=== PATIENT | male | born 1990 | race Caucasian/White ===

== ENCOUNTER 2017-05-01 10:49 | Emergency (ER) | payer SELFPAY ==
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
[2017-05-01] MEDS ORDERED: Ketorolac INJ* 60 MG/2 ML VIAL IM ONE (12:52)
[2017-05-01 12:55] VITALS: BP 122/62
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
== END 2017-05-01 13:20 | disposition home or self-care (01) ==
LOC: UCEAST 10:49
DX: S16.1XXA Strain of muscle, fascia and tendon at neck level, initial encounter (principal); V43.52XA Car driver injured in collision with other type car in traffic accident, initial encounter; Y93.89 Activity, other specified; Y92.410 Unspecified street and highway as the place of occurrence of the external cause; F17.210 Nicotine dependence, cigarettes, uncomplicated
CPT/HCPCS: 72050; 72070; 96372; 99202; G0463; J1885

== ENCOUNTER 2018-12-05 21:16 | Emergency (ER) | payer SELFPAY ==
[2018-12-05] MEDS ORDERED: Tetracaine 0.5% OPTH.SOL 4 ML* 1 DROP BTL LEFT EYE ONE (21:26)
[2018-12-05] MEDS ORDERED: Fluorescein Sodium TOPICAL* 1 MG TEST STRIP OPHTHALMIC ONE (21:26)
--- NOTE | 2018-12-05 21:30 | UC ---
Eye Complaint HPI - HPI Summary HPI Summary: 28-year-old male complains of 3-4 days of foreign body sensation, pain, redness and tearing in his left eye. He has no definite history for foreign body in that eye and does not wear contacts or glasses. He states he has had corneal ulceration in the past but was unsure why. He denies any pain with bright light or other injury. He is a smoker but denies contributory medical history. - History of Current Complaint Stated Complaint: EYE COMPLAINT Time Seen by Provider: 12/05/18 21:20 Hx Obtained From: Patient - Allergies/Home Medications Allergies/Adverse Reactions: Allergies Allergy/AdvReac Type Severity Reaction Status Date / Time No Known Allergies Allergy Verified 12/05/18 21:36 PMH/Surg Hx/FS Hx/Imm Hx - Additional Past Medical History Additional PMH: Corneal ulceration in the past Previously Healthy: Yes - no autoimmune disease - Surgical History Surgical History: None - Family History Known Family History: Negative: Blood Disorder - Social History Alcohol Use: Occasionally Substance Use Type: None Smoking Status (MU): Light Every Day Tobacco Smoker Amount Used/How Often: 1/2PPD Review of Systems All Other Systems Reviewed And Are Negative: Yes Constitutional: Negative: Fever Skin: Positive: Negative Eyes: Positive: Drainage, Eye Redness, Other - FB sensation. Negative: Blurred Vision, Diplopia ENT: Positive: Negative Neurological: Positive: Negative Physical Exam Triage Information Reviewed: Yes Appearance: Well-Appearing, No Pain Distress, Well-Nourished Eyes: Positive: Conjunctiva Inflamed, Other: - no FB with lid eversion. Appears to be tiny opacification at 2pm on lateral cornea. Tearing without discharge. No pain with light reflex. No apparent depth to the lesion which does uptake fluorescein. Pain relieved with topical tetracaine ENT: Positive: Normal ENT inspection Neck: Positive: Supple Respiratory: Positive: Lungs clear Cardiovascular: Positive: RRR Musculoskeletal Exam: Normal Neurological Exam: Normal Psychological Exam: Normal Skin Exam: Normal Eye Complaint Course/Dx - Course Course Of Treatment: Abrasion versus ulceration with no apparent depth to it up appearing at 2 PM on the cornea. This is about 1 mm in size. There is fluorescein uptake in pain relieved with tetracaine. There is some opacification to it. He does have a history of ulceration in the past from a piece of concrete and was told that he would have scarring. There is no foreign body present with lid eversion. There is no evidence for iritis and he has no autoimmune history. Treated for pain and referred to ophthalmology. Started on topical drops here. 20/15 dion eye vision. - Differential Dx/Diagnosis Differential Diagnosis/HQI/PQRI: Corneal Abrasion, Keratitis, Uveitis Provider Diagnosis: Corneal abrasion, left Discharge - Sign-Out/Discharge Documenting (check all that apply): Patient Departure All imaging exams completed and their final reports reviewed: No Studies - Discharge Plan Condition: Improved Disposition: HOME Prescriptions: HYDROcodone/ACETAMIN 5-325 MG* [[place] 5-325 TAB*] 1 tab PO Q8H PRN #5 tab MDD 3 PRN Reason: severe eye pain Patient Education Materials: Corneal Abrasion (ED) Referrals: No Primary Care PhysNOPCP [Primary Care Provider] - Rolan Alexandra MD [Medical Doctor] - Additional Instructions: Call first thing Thursday to schedule prompt follow-up with eye doctor. Return to urgent care tomorrow if you're having increased pain, trouble with vision, worse or other concerns. For tonight do one drop in the left eye every hour until bedtime. Then he will use it one drop 5 or 6 times per day until seen by the eye doctor. Ibuprofen for baseline pain. - Billing Disposition and Condition Condition: IMPROVED Disposition: Home
[2018-12-05 21:36] VITALS: BP 145/90
[2018-12-05] MEDS ORDERED: Ciprofloxacin 0.3% OPTH.SOL* BTL LEFT EYE ONE (21:39)
[2018-12-05] MEDS ORDERED: HYDROcodone/ACETAMIN 5-325 MG* 1 TAB PO ONE (21:39)
[2018-12-05] MEDS ORDERED: Ibuprofen TAB* 600 MG PO ONE (21:40)
== END 2018-12-05 22:01 | disposition home or self-care (01) ==
LOC: UCEAST 21:16
DX: S05.02XA Injury of conjunctiva and corneal abrasion without foreign body, left eye, initial encounter (principal); F17.210 Nicotine dependence, cigarettes, uncomplicated; X58.XXXA Exposure to other specified factors, initial encounter; Y92.9 Unspecified place or not applicable
CPT/HCPCS: 99213; A9270-GY; G0463